=== PATIENT | female | born 1985 ===

== ENCOUNTER 2024-10-23 08:15 | Outpatient (CLI) | payer OTHER | END 2024-10-23 08:16 | disposition home or self-care (01) | LOC: PRENATAL 08:15 | PROVIDERS: ATTEND Obstetrics & Gynecology Maternal & Fetal Medicine | DX: O36.80X0 Pregnancy with inconclusive fetal viability, not applicable or unspecified (principal); Z36.82 Encounter for antenatal screening for nuchal translucency; O09.511 Supervision of elderly primigravida, first trimester; Z14.8 Genetic carrier of other disease ==

== ENCOUNTER → 2024-12-18 | Outpatient (CLI) | payer OTHER | END | disposition home or self-care (01) | LOC: PRENATAL 08:05 | PROVIDERS: ATTEND Obstetrics & Gynecology Maternal & Fetal Medicine | DX: O44.00 Complete placenta previa NOS or without hemorrhage, unspecified trimester (principal); O09.519 Supervision of elderly primigravida, unspecified trimester; O34.10 Maternal care for benign tumor of corpus uteri, unspecified trimester; Z3A.20 20 weeks gestation of pregnancy ==

== ENCOUNTER 2025-02-12 08:40 | Outpatient (CLI) | payer OTHER | END 2025-02-12 08:41 | disposition home or self-care (01) | LOC: PRENATAL 08:40 | PROVIDERS: ATTEND Obstetrics & Gynecology Maternal & Fetal Medicine | DX: O26.849 Uterine size-date discrepancy, unspecified trimester (principal); O36.8199 Decreased fetal movements, unspecified trimester, other fetus; O09.519 Supervision of elderly primigravida, unspecified trimester; O34.10 Maternal care for benign tumor of corpus uteri, unspecified trimester; Z3A.28 28 weeks gestation of pregnancy ==

== ENCOUNTER 2025-03-26 09:06 | Outpatient (CLI) | payer OTHER | END 2025-03-26 09:07 | disposition home or self-care (01) | LOC: PRENATAL 09:06 | DX: O26.849 Uterine size-date discrepancy, unspecified trimester (principal); O36.8199 Decreased fetal movements, unspecified trimester, other fetus; O09.519 Supervision of elderly primigravida, unspecified trimester; O34.10 Maternal care for benign tumor of corpus uteri, unspecified trimester; Z3A.35 35 weeks gestation of pregnancy ==